=== PATIENT | female | born 1985 | race Caucasian/White ===

== ENCOUNTER 2023-10-18 07:38 | Emergency (ER) | payer OTHER ==
[~2023-10-18] VITALS: Ht 162.6 cm; Wt 53.9 kg
[2023-10-18 07:46] VITALS: BP 109/66; PULSE 94; RESP 18; TEMP 99.8; O2SAT 98
[2023-10-18 08:38] LABS: BILIRUBIN,URINE NEGATIVE (Neg); CLARITY,URINE CLOUDY (Clear); COLOR,URINE YELLOW (Yellow); GLUCOSE, URINE NEGATIVE (Neg); KETONES,URINE 40 mg/dl (Neg); LEUKOCYTE ESTERASE ,URINE LARGE (Neg); NITRITES, URINE NEGATIVE (Neg); OCCULT BLOOD,URINE SMALL (Neg); PROTEIN,URINE 30 mg/dl (Neg); URINE HCG NEGATIVE (NEG); UROBILINOGEN,URINE 0.2 E.U/dL (0.2-1.0)
[2023-10-18 08:42] LABS: UA COLLECTION TYPE CLN CATCH MIDSTREAM
[2023-10-18 08:44] LABS: SQUAMOUS EPITHELIAL CELL,UR MANY /LPF (FEW)
[2023-10-18 08:45] LABS: MUCUS STRANDS FEW /LPF (Neg); WBC CLUMPS,URINE FEW /HPF (NEGATIVE); WBC,URINE TNTC /HPF (0-4)
[2023-10-18 08:47] LABS: BACTERIA,URINE 1+ /HPF (Neg)
[2023-10-18] MEDS ORDERED: CIPR-259 PO (09:05)
[2023-10-18] MEDS ORDERED: CEPH250T PO (09:45)
== END 2023-10-18 10:19 | disposition home or self-care (01) ==
LOC: ER 07:39
DX: N39.0 Urinary tract infection, site not specified (principal)
CPT/HCPCS: 81001; 81025; 99283

== ENCOUNTER 2024-06-18 08:58 | Emergency (ER) | payer MEDICAID, SELFPAY ==
[~2024-06-18] VITALS: Ht 162.6 cm; Wt 61.4 kg
[2024-06-18 09:01] VITALS: BP 107/66; PULSE 105; RESP 18; O2SAT 98
[2024-06-18] MEDS ORDERED: SODI45SP5 BOTHNARES (09:29)
[2024-06-18] MEDS ORDERED: GUAI100L97 PO (09:29)
[2024-06-18] MEDS ORDERED: ACET325T55 PO (09:29)
[2024-06-18 09:33] VITALS: TEMP 97.8
== END 2024-06-18 09:35 | disposition home or self-care (01) ==
LOC: ER 08:59
DX: O99.511 Diseases of the respiratory system complicating pregnancy, first trimester (principal); J22 Unspecified acute lower respiratory infection; Z3A.12 12 weeks gestation of pregnancy
CPT/HCPCS: 99282